=== PATIENT | female | born 1995 | race Caucasian/White ===

== ENCOUNTER 2021-07-13 01:49 | Emergency (ER) | payer OTHER ==
[2021-07-13 03:55] LABS: HEMOGLOBIN 13.3 gm/dl (12.3-15.3); RED BLOOD COUNT 4.51 M/UL (4.00-5.10); WHITE BLOOD COUNT 9.1 K/UL (4.5-11.0)
[2021-07-13 04:04] LABS: BUN/CREATININE RATIO 15 (0-10)
== END 2021-07-13 06:25 | disposition home or self-care (01) ==
LOC: ER1 01:49
PROVIDERS: Family Medicine
DX: N83.202 Unspecified ovarian cyst, left side (principal)
CPT/HCPCS: 80053; 83690; 84703; 85025; 99284; Q9967